=== PATIENT | male | born 1975 | race Caucasian/White ===

== ENCOUNTER 2017-08-12 10:30 | Inpatient (IN) | payer OTHER ==
[2017-08-12 11:30] VITALS: BMI 26.0
--- NOTE | 2017-08-12 14:24 | HP ---
COWS - Scale Resting Pulse: 0= [place] 80 or Below Sweatin= Chills/Flushing Restless Observation: 3= Extraneous Movement Pupil Size: 0= Normal to Room Light Bone or Joint Aches: 2= Severe Diffuse Aches Runny Nose/ Eye Tearin= Runny Nose/Eyes GI Upset > 30mins: 2= Nausea/Diarrhea Tremor Observation: 2= Slight Tremor Visible Yawning Observation: 1= 1-2x During Session Anxiety or Irritability: 2=Irritable/Anxious Goose Flesh Skin: 0=Smooth Skin COWS Score: 15 CIWA Score - CIWA Score Nausea/Vomitin-No Nausea/No Vomiting Muscle Tremors: 2 Anxiety: 5 Agitation: 4-Moderately Restless Paroxysmal Sweats: 3 Orientation: 0-Oriented Tacttile Disturbances: 0-None Auditory Disturbances: 0-None Visual Disturbances: 3-Moderate Sensitivity Headache: 0-None Present CIWA-Ar Total Score: 17 Admission ROS S - HPI Chief Complaint: "I want to get clean and I don't want to use drugs anymore." Patient is here to Detox from Alcohol, Opiates, and Xanax. Allergies/Adverse Reactions: Allergies Allergy/AdvReac Type Severity Reaction Status Date / Time Fish Containing Products Allergy Severe Hives Verified 08/12/17 11:57 NKDA Allergy Uncoded 08/12/17 11:57 History of Present Illness: Patient is a 42 YO male here to detox from Opiates, Alcohol, and Xanax (non- prescribed). This is patient's first Detox admission to [facility]. Exam Limitations: No Limitations - Ebola screening Have you traveled outside of the country in the last 21 days: No Have you had contact with anyone from an Ebola affected area: No Have you been sick,other than usual withdrawal symptoms: No Do you have a fever: No - Review of Systems Constitutional: Chills, Diaphoresis, Fever, Malaise, Night Sweats, Changes in sleep, Unintentional Wgt. Loss (Lost approx. 20 lbs. over last two months.) EENT: reports: No Symptoms Reported Respiratory: reports: No Symptoms reported Cardiac: reports: No Symptoms Reported GI: reports: Nausea, Poor Appetite, Vomiting : reports: No Symptoms Reported Musculoskeletal: reports: No Symptoms Reported Integumentary: reports: No Symptoms Reported Neuro: reports: Tremors Endocrine: reports: No Symptoms Reported Hematology: reports: No Symptoms Reported Psychiatric: reports: Judgement Intact, Mood/Affect Appropiate, Orientated x3, Anxious Other Systems: Reviewed and Negative Patient History - Patient Medical History Hx Anemia: No Hx Asthma: No Hx Chronic Obstructive Pulmonary Disease (COPD): No Hx Cancer: No Hx Cardiac Disorders: No Hx Congestive Heart Failure: No Hx Hypertension: No Hx Hypercholesterolemia: No Hx Pacemaker: No HX Cerebrovascular Accident: No Hx Seizures: No Hx Dementia: No Hx Diabetes: No Hx Gastrointestinal Disorders: No Hx Liver Disease: No Hx Genitourinary Disorders: No Hx Sexually Transmitted Disorders: No Hx Renal Disease (ESRD): No Hx Thyroid Disease: No Hx Human Immunodeficiency Virus (HIV): No (Last Tested: approx. 6 months ago: NEGATIVE.) Hx Hepatitis C: No (Cannot remember when last tested.) Hx Depression: No Hx Suicide Attempt: No (PATIENT DENIES CURRENT SI / HI.) Hx Bipolar Disorder: No Hx Schizophrenia: No Other Medical History: DENIES. - Patient Surgical History Past Surgical History: No Hx Neurologic Surgery: No Hx Cataract Extraction: No Hx Cardiac Surgery: No Hx Lung Surgery: No Hx Breast Surgery: No Hx Breast Biopsy: No Hx Abdominal Surgery: No Hx Appendectomy: No Hx Cholecystectomy: No Hx Genitourinary Surgery: No Hx Section: No Hx Orthopedic Surgery: No Other Surgical History: DENIES. Anesthesia Reaction: No - PPD History Previous Implant?: Yes Documented Results: Negative w/o proof Implanted On Prior R Admission?: No PPD to be Administered?: Yes - Reproductive History Patient is a Female of Child Bearing Age (11 -55 yrs old): No (PATIENT IS MALE.) - Smoking Cessation Smoking history: Never smoked Have you smoked in the past 12 months: No Cigars Per Day: 0 Hx Chewing Tobacco Use: No Initiated information on smoking cessation: No - Substance & Tx. History Hx Alcohol Use: Yes Hx Substance Use: Yes Substance Use Type: Alcohol, Heroin, Opiates, Tranquilizers Hx Substance Use Treatment: No - Substances Abused Heroin Route: Injection Frequency: Daily Amount used: 15 bags Age of first use: 18 Date of Last Use: 08/12/17 Alcohol-beer Route: Oral Frequency: Daily Amount used: 1-2 6 pks. Age of first use: 20 Date of Last Use: 08/12/17 Xanax Route: Oral Frequency: Daily Amount used: 5 tabs. (2 mg.) Age of first use: 41 Date of Last Use: 08/12/17 street methadone Route: Oral Frequency: 1-3 times last 30 days Amount used: 100 mg. Age of first use: 19 Date of Last Use: 08/11/17 Family Disease History - Family Disease History Family History: Denies Admission Physical Exam [facility] - Vital Signs Vital Signs: Vital Signs - 24 hr 08/12/17 11:28 Temperature 97.8 F Pulse Rate 62 Respiratory 20 Rate Blood Pressure 154/85 - Physical General Appearance: Yes: No Apparent Distress, Nourished, Appropriately Dressed , Tremorous, Irritable, Anxious HEENTM: Yes: Hearing grossly Normal, Normocephalic, Normal Voice, ALMA, Pharynx Normal Respiratory: Yes: Chest Non-Tender, Lungs Clear, No Respiratory Distress, No Accessory Muscle Use Neck: Yes: No masses,lesions,Nodules, Supple, Trachea in good position Breast: Yes: Breast Exam Deferred Cardiology: Yes: Regular Rhythm, Regular Rate, S1, S2 Abdominal: Yes: Normal Bowel Sounds, Non Tender, Flat, Soft Genitourinary: Yes: Within Normal Limits Back: Yes: Normal Inspection Musculoskeletal: Yes: full range of Motion, Gait Steady Extremities: Yes: Normal Capillary Refill, Normal Range of Motion, Non-Tender, Tremors Neurological: Yes: Fully Oriented, Alert, Normal Mood/Affect, Normal Response Integumentary: Yes: Normal Color, Dry, Warm, Track [place] (Noted on cubital crease of right forearm. No signs of infection noted at site.) Lymphatic: Yes: Within Normal Limits - Diagnostic (1) Opioid dependence with withdrawal Current Visit: Yes Status: Acute (2) Alcohol dependence with uncomplicated withdrawal Current Visit: Yes Status: Acute (3) Sedative, hypnotic or anxiolytic dependence with withdrawal, uncomplicated Current Visit: Yes Status: Acute Cleared for Admission [facility] - Detox or Rehab [facility] Level of Care: Medically Managed Detox Regimen/Protocol: Methadone/Valium [facility] Breath Alcohol Content Breath Alcohol Content: 0 Urine Drug Screen - Results Drug Screen Negative: No Urine Drug Screen Results: MATTHIAS-Cocaine, OPI-Opiates, BZO-Benzodiazepines, MTD- Methadone
[2017-08-12] MEDS ORDERED: MAGNESIUM HYDROX 2400MG/30ML ORAL SUSPENSION 30 ML CUP PO PRN (14:49)
[2017-08-12] MEDS ORDERED: guaiFENesin/D-METHORPHAN HB 10 ML UNIT-DOSE CUPS PO PRN (14:49)
[2017-08-12] MEDS ORDERED: MENTHOL/PHENOL 1 EACH UD MM PRN (14:49)
[2017-08-12] MEDS ORDERED: MAG HYDROX/AL HYDROX/SIMETH 30 ML UNIT-DOSE CUP PO PRN (14:49)
[2017-08-12] MEDS ORDERED: MAGNESIUM CITRATE 300 ML BOTTLE PO PRN (14:49)
[2017-08-12] MEDS ORDERED: ACETAMINOPHEN 325 MG TABLET (FP) PO PRN (14:49)
[2017-08-12] MEDS ORDERED: LOPERAMIDE HCL 2 MG CAPSULE PO PRN (14:49)
[2017-08-12] MEDS ORDERED: P-EPHED 60MG/TRIPROLIDI 2.5MG TABLET PO PRN (14:49)
[2017-08-12] MEDS ORDERED: METHADONE HCL 10 MG TABLET (FOR DETOX USE ONLY) PO ONE ×2 (15:15→23:00)
[2017-08-12] MEDS ORDERED: diazePAM 5 MG TABLET PO ONE (15:15)
[2017-08-12] MEDS: diazePAM 5 MG TABLET PO SCH (22:10)
[2017-08-12] MEDS: THIAMINE HCL 100 MG TABLET (FP) PO SCH (22:10)
[2017-08-13 01:29] LABS: URINE APPEARANCE CLOUDY; URINE BILIRUBIN NEGATIVE (<2.0 mg/dL); URINE COLOR AMBER; URINE GLUCOSE (UA) NEGATIVE (NEGATIVE); URINE KETONE NEGATIVE (NEGATIVE); URINE LEUK ESTERASE NEGATIVE (NEGATIVE); URINE NITRITE NEGATIVE (NEGATIVE); URINE UROBILINOGEN 4.0 E.U/dl mg/dL (0.2-1.0)
[2017-08-13 01:38] LABS: URINE PROTEIN 1+ (NEGATIVE)
[2017-08-13 01:59] LABS: CALCIUM OXALATE CRYSTALS MODERATE /hpf (NONE SEEN); URINE BACTERIA RARE /hpf (NONE SEEN); URINE MUCUS MANY
[2017-08-13] MEDS: diazePAM 5 MG TABLET PO SCH ×3 (05:23→22:05)
[2017-08-13] MEDS ORDERED: METHADONE HCL 10 MG TABLET (FOR DETOX USE ONLY) PO SCH (10:00)
[2017-08-13 10:16] LABS: HEMATOCRIT 34.6 % (35.4-49); HEMOGLOBIN 11.9 GM/dL (11.7-16.9); MCH 31.1 pg (25.7-33.7); MCHC 34.5 g/dl (32.0-35.9); MEAN PLT VOLUME 9.1 fl (7.5-11.1); PLATELET COUNT 199 K/MM3 (134-434); RBC 3.84 M/mm3 (4.00-5.60); RDW 13.9 % (11.9-15.9); WHITE BLOOD COUNT 4.8 K/mm3 (4.0-10.0)
[2017-08-13] MEDS: PRENATAL VITAMINS W/ FOLIC ACID TABLET (FP) PO SCH (10:39)
[2017-08-13] MEDS: diazePAM 5 MG TABLET PO PRN ×2 (10:40→17:09)
[2017-08-13 11:15] LABS: ALBUMIN 3.8 g/dl (3.4-5.0); ANION GAP 6 (8-16); BLOOD UREA NITROGEN 16 mg/dL (7-18); CALCIUM 8.7 mg/dL (8.5-10.1); CHLORIDE 106 mmol/L (98-107); CO2 29 mmol/L (21-32); CREATININE 0.8 mg/dL (0.7-1.3); GLUCOSE,RANDOM 80 mg/dL (74-106); SGOT/AST 17 U/L (15-37); SGPT/ALT 54 U/L (12-78); SODIUM 141 mmol/L (136-145)
[2017-08-13 11:17] LABS: ALK PHOS 58 U/L (45-117); BILIRUBIN,TOTAL 0.3 mg/dL (0.2-1.0); TOT PROT 6.9 g/dl (6.4-8.2)
--- NOTE | 2017-08-13 14:01 | EKG ---
Test Reason : Blood Pressure : / mmHG Vent. Rate : 068 BPM Atrial Rate : 068 BPM P-R Int : 128 ms QRS Dur : 098 ms QT Int : 396 ms P-R-T Axes : 075 060 039 degrees QTc Int : 421 ms NORMAL SINUS RHYTHM MINIMAL VOLTAGE CRITERIA FOR LVH, MAY BE NORMAL VARIANT BORDERLINE ECG NO PREVIOUS ECGS AVAILABLE Confirmed by DAIN WELLS MD ([id number]) on 08/13/2017 2:01:05 PM Referred By: Confirmed By:DAIN WELLS MD
--- NOTE | 2017-08-13 15:51 | PN ---
S CIWA - CIWA Score Nausea/Vomitin-No Nausea/No Vomiting Muscle Tremors: None Anxiety: 5 Agitation: 4-Moderately Restless Paroxysmal Sweats: No Perspiration Orientation: 0-Oriented Tacttile Disturbances: 2-Mild Itch/Numbness/Burn Auditory Disturbances: 2-Mild Harshness/Frighten Visual Disturbances: 3-Moderate Sensitivity Headache: 0-None Present CIWA-Ar Total Score: 16 BHS COWS - Scale Resting Pulse: 0= [place] 80 or Below Sweatin= No chills or Flushing Restless Observation: 1= Difficult to Sit Still Pupil Size: 0= Normal to Room Light Bone or Joint Aches: 2= Severe Diffuse Aches Runny Nose/ Eye Tearin= Nasal Congestion GI Upset > 30mins: 2= Nausea/Diarrhea Tremor Observation of Outstretched Hands: 0= None Yawning Observation: 1= 1-2x During Session Anxiety or Irritability: 4=Extreme Anxiety Goose Flesh Skin: 3=Piloerection COWS Score: 14 S Progress Note (SOAP) Subjective: Body aches, Anxious, Stomach Cramping, Interrupted Sleep, Diarrhea. Objective: PATIENT A & O X 3, OBSERVED AMBULATING ON UNIT. NO ACUTE DISTRESS. 08/13/17 15:50 Vital Signs Temperature 98.6 F 08/13/17 14:49 Pulse Rate 69 08/13/17 14:49 Respiratory Rate 18 08/13/17 14:49 Blood Pressure 113/74 08/13/17 14:49 O2 Sat by Pulse Oximetry (%) Laboratory Tests 08/12/17 08/13/17 08/13/17 23:52 06:00 06:00 WBC 4.8 RBC 3.84 L Hgb 11.9 Hct 34.6 L MCV 90.0 MCH 31.1 MCHC 34.5 RDW 13.9 Plt Count 199 MPV 9.1 Sodium 141 Potassium 4.0 Chloride 106 Carbon Dioxide 29 Anion Gap 6 L BUN 16 Creatinine 0.8 Creat Clearance w eGFR > 60 Random Glucose 80 Calcium 8.7 Total Bilirubin 0.3 AST 17 ALT 54 Alkaline Phosphatase 58 Total Protein 6.9 Albumin 3.8 Urine Color Beba Urine Appearance Cloudy Urine pH 6.0 Ur Specific [place] 1.031 Urine Protein 1+ H Urine Glucose (UA) Negative Urine Ketones Negative Urine Blood Negative Urine Nitrite Negative Urine Bilirubin Negative Urine Urobilinogen 4.0 e.u/dl Ur Leukocyte Esterase Negative Urine WBC (Auto) 3 Urine RBC (Auto) 3 Calcium Oxalate Crystal Moderate Urine Bacteria Rare Urine Mucus Many RPR Titer 08/13/17 06:00 WBC RBC Hgb Hct MCV MCH MCHC RDW Plt Count MPV Sodium Potassium Chloride Carbon Dioxide Anion Gap BUN Creatinine Creat Clearance w eGFR Random Glucose Calcium Total Bilirubin AST ALT Alkaline Phosphatase Total Protein Albumin Urine Color Urine Appearance Urine pH Ur Specific [place] Urine Protein Urine Glucose (UA) Urine Ketones Urine Blood Urine Nitrite Urine Bilirubin Urine Urobilinogen Ur Leukocyte Esterase Urine WBC (Auto) Urine RBC (Auto) Calcium Oxalate Crystal Urine Bacteria Urine Mucus RPR Titer Nonreactive LABS NOTED. Assessment: 08/13/17 15:50 WITHDRAWAL SYMPTOMS. Plan: CONTINUE DETOX. INCREASE DAILY PO FLUID INTAKE. PRN IMMODIUM FOR DIARRHEA.
[2017-08-13] MEDS: THIAMINE HCL 100 MG TABLET (FP) PO SCH (22:05)
[2017-08-13] MEDS: MELATONIN 5 MG TABLETS PO PRN (22:05)
[2017-08-14] MEDS: diazePAM 5 MG TABLET PO PRN ×4 (00:42→18:10)
[2017-08-14] MEDS: IBUPROFEN 400 MG TABLET (FP) PO PRN ×2 (00:42→06:48)
[2017-08-14] MEDS: METHADONE HCL 5 MG TABLET (FOR DETOX USE ONLY) PO SCH (09:04)
[2017-08-14] MEDS: PRENATAL VITAMINS W/ FOLIC ACID TABLET (FP) PO SCH (09:04)
[2017-08-14] MEDS: diazePAM 5 MG TABLET PO SCH ×2 (09:04→22:43)
[2017-08-14] MEDS: CYCLOBENZAPRINE HCL 10 MG TABLET (FP) PO PRN ×2 (09:04→22:43)
[2017-08-14] MEDS ORDERED: IBUPROFEN 600 MG TABLET (FP) PO PRN (11:04)
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
[2017-08-14] MEDS: LIDOCAINE 5% TOPICAL PATCH TP SCH (11:20)
[2017-08-14] MEDS: THIAMINE HCL 100 MG TABLET (FP) PO SCH (22:44)
[2017-08-14] MEDS: LIDOCAINE PATCH REMOVAL MC SCH (23:18)
[2017-08-15] MEDS: diazePAM 5 MG TABLET PO PRN ×3 (03:55→12:25)
[2017-08-15] MEDS: CYCLOBENZAPRINE HCL 10 MG TABLET (FP) PO PRN ×2 (07:04→22:07)
[2017-08-15] MEDS: PRENATAL VITAMINS W/ FOLIC ACID TABLET (FP) PO SCH (10:38)
[2017-08-15] MEDS: diazePAM 5 MG TABLET PO SCH ×2 (10:38→22:07)
[2017-08-15] MEDS: METHADONE HCL 5 MG TABLET (FOR DETOX USE ONLY) PO SCH (10:39)
[2017-08-15] MEDS: LIDOCAINE 5% TOPICAL PATCH TP SCH (10:39)
--- NOTE | 2017-08-15 13:03 | PN ---
BHS Progress Note (SOAP) Subjective: Body Aches, Lower Back Pain, Anxious, Constipation. Objective: PATIENT A & O X 3, OBSERVED AMBULATING ON UNIT. NO ACUTE DISTRESS. 08/15/17 13:01 Vital Signs Temperature 98.0 F 08/15/17 11:00 Pulse Rate 70 08/15/17 11:00 Respiratory Rate 18 08/15/17 11:00 Blood Pressure 106/65 08/15/17 11:00 O2 Sat by Pulse Oximetry (%) Laboratory Tests 08/12/17 08/13/17 08/13/17 23:52 06:00 06:00 WBC 4.8 RBC 3.84 L Hgb 11.9 Hct 34.6 L MCV 90.0 MCH 31.1 MCHC 34.5 RDW 13.9 Plt Count 199 MPV 9.1 Sodium 141 Potassium 4.0 Chloride 106 Carbon Dioxide 29 Anion Gap 6 L BUN 16 Creatinine 0.8 Creat Clearance w eGFR > 60 Random Glucose 80 Calcium 8.7 Total Bilirubin 0.3 AST 17 ALT 54 Alkaline Phosphatase 58 Total Protein 6.9 Albumin 3.8 Urine Color Beba Urine Appearance Cloudy Urine pH 6.0 Ur Specific [place] 1.031 Urine Protein 1+ H Urine Glucose (UA) Negative Urine Ketones Negative Urine Blood Negative Urine Nitrite Negative Urine Bilirubin Negative Urine Urobilinogen 4.0 e.u/dl Ur Leukocyte Esterase Negative Urine WBC (Auto) 3 Urine RBC (Auto) 3 Calcium Oxalate Crystal Moderate Urine Bacteria Rare Urine Mucus Many RPR Titer 08/13/17 06:00 WBC RBC Hgb Hct MCV MCH MCHC RDW Plt Count MPV Sodium Potassium Chloride Carbon Dioxide Anion Gap BUN Creatinine Creat Clearance w eGFR Random Glucose Calcium Total Bilirubin AST ALT Alkaline Phosphatase Total Protein Albumin Urine Color Urine Appearance Urine pH Ur Specific [place] Urine Protein Urine Glucose (UA) Urine Ketones Urine Blood Urine Nitrite Urine Bilirubin Urine Urobilinogen Ur Leukocyte Esterase Urine WBC (Auto) Urine RBC (Auto) Calcium Oxalate Crystal Urine Bacteria Urine Mucus RPR Titer Nonreactive LABS NOTED. Assessment: 08/15/17 13:01 withdrawal symptoms. Plan: CONTINUE DETOX. INCREASE DAILY PO FLUID INTAKE. LIDODERM PATCH FOR LOWER BACK PAIN. PRN MOM FOR CONSTIPATION.
[2017-08-15] MEDS: LIDOCAINE PATCH REMOVAL MC SCH (22:06)
[2017-08-15] MEDS: MELATONIN 5 MG TABLETS PO PRN (22:07)
[2017-08-15] MEDS: THIAMINE HCL 100 MG TABLET (FP) PO SCH (22:08)
[2017-08-16] MEDS ORDERED: diazePAM 5 MG TABLET PO SCH (10:00)
[2017-08-16] MEDS ORDERED: METHADONE HCL 10 MG TABLET (FOR DETOX USE ONLY) PO SCH (10:00)
[2017-08-16] MEDS: PRENATAL VITAMINS W/ FOLIC ACID TABLET (FP) PO SCH (10:42)
[2017-08-16] MEDS: LIDOCAINE 5% TOPICAL PATCH TP SCH (10:43)
[2017-08-16] MEDS: CLOTRIMAZOLE 1% CREAM 15 GM TUBE TP SCH ×2 (15:16→22:44)
--- NOTE | 2017-08-16 16:27 | PN ---
BHS Progress Note (SOAP) Subjective: Anxious, Body Aches. Objective: PATIENT A & O X 3, OBSERVED AMBULATING ON UNIT. NO ACUTE DISTRESS. 08/16/17 16:26 Vital Signs Temperature 95.1 F L 08/16/17 15:01 Pulse Rate 65 08/16/17 15:01 Respiratory Rate 18 08/16/17 15:01 Blood Pressure 118/74 08/16/17 15:01 O2 Sat by Pulse Oximetry (%) Laboratory Tests 08/12/17 08/13/17 08/13/17 23:52 06:00 06:00 WBC 4.8 RBC 3.84 L Hgb 11.9 Hct 34.6 L MCV 90.0 MCH 31.1 MCHC 34.5 RDW 13.9 Plt Count 199 MPV 9.1 Sodium 141 Potassium 4.0 Chloride 106 Carbon Dioxide 29 Anion Gap 6 L BUN 16 Creatinine 0.8 Creat Clearance w eGFR > 60 Random Glucose 80 Calcium 8.7 Total Bilirubin 0.3 AST 17 ALT 54 Alkaline Phosphatase 58 Total Protein 6.9 Albumin 3.8 Urine Color Beba Urine Appearance Cloudy Urine pH 6.0 Ur Specific [place] 1.031 Urine Protein 1+ H Urine Glucose (UA) Negative Urine Ketones Negative Urine Blood Negative Urine Nitrite Negative Urine Bilirubin Negative Urine Urobilinogen 4.0 e.u/dl Ur Leukocyte Esterase Negative Urine WBC (Auto) 3 Urine RBC (Auto) 3 Calcium Oxalate Crystal Moderate Urine Bacteria Rare Urine Mucus Many RPR Titer 08/13/17 06:00 WBC RBC Hgb Hct MCV MCH MCHC RDW Plt Count MPV Sodium Potassium Chloride Carbon Dioxide Anion Gap BUN Creatinine Creat Clearance w eGFR Random Glucose Calcium Total Bilirubin AST ALT Alkaline Phosphatase Total Protein Albumin Urine Color Urine Appearance Urine pH Ur Specific [place] Urine Protein Urine Glucose (UA) Urine Ketones Urine Blood Urine Nitrite Urine Bilirubin Urine Urobilinogen Ur Leukocyte Esterase Urine WBC (Auto) Urine RBC (Auto) Calcium Oxalate Crystal Urine Bacteria Urine Mucus RPR Titer Nonreactive LABS NOTED. Assessment: 08/16/17 16:26 WITHDRAWAL SYMPTOMS. Plan: CONTINUE DETOX. PATIENT SCHEDULED FOR D/C TOMORROW AM.
[2017-08-16] MEDS: LIDOCAINE PATCH REMOVAL MC SCH (22:43)
[2017-08-16] MEDS: MELATONIN 5 MG TABLETS PO PRN (22:45)
[2017-08-16] MEDS: THIAMINE HCL 100 MG TABLET (FP) PO SCH (23:20)
[2017-08-17] MEDS ORDERED: METHADONE HCL 5 MG TABLET (FOR DETOX USE ONLY) PO SCH (06:00)
[2017-08-17 06:20] VITALS: BP 118/69; PULSE 68; TEMP 96.7
[2017-08-17] MEDS: PRENATAL VITAMINS W/ FOLIC ACID TABLET (FP) PO SCH (09:24)
[2017-08-17] MEDS: CLOTRIMAZOLE 1% CREAM 15 GM TUBE TP SCH (09:24)
[2017-08-17] MEDS: LIDOCAINE 5% TOPICAL PATCH TP SCH (09:24)
--- NOTE | 2017-08-17 15:12 | PN ---
BHS Progress Note (SOAP) Subjective: DETOX COMPLETED. ALERT O X3. NAD. Objective: 08/17/17 15:16 Vital Signs - 24 hr 08/16/17 08/16/17 08/17/17 17:23 21:48 00:30 Temperature 98.1 F 95.9 F L Pulse Rate 68 59 L Respiratory 18 18 18 Rate Blood Pressure 128/74 118/72 08/17/17 08/17/17 03:30 06:19 Temperature 96.7 F L Pulse Rate 68 Respiratory 18 18 Rate Blood Pressure 118/69 Laboratory Tests 08/12/17 08/13/17 08/13/17 23:52 06:00 06:00 WBC 4.8 RBC 3.84 L Hgb 11.9 Hct 34.6 L MCV 90.0 MCH 31.1 MCHC 34.5 RDW 13.9 Plt Count 199 MPV 9.1 Sodium 141 Potassium 4.0 Chloride 106 Carbon Dioxide 29 Anion Gap 6 L BUN 16 Creatinine 0.8 Creat Clearance w eGFR > 60 Random Glucose 80 Calcium 8.7 Total Bilirubin 0.3 AST 17 ALT 54 Alkaline Phosphatase 58 Total Protein 6.9 Albumin 3.8 Urine Color Beba Urine Appearance Cloudy Urine pH 6.0 Ur Specific [place] 1.031 Urine Protein 1+ H Urine Glucose (UA) Negative Urine Ketones Negative Urine Blood Negative Urine Nitrite Negative Urine Bilirubin Negative Urine Urobilinogen 4.0 e.u/dl Ur Leukocyte Esterase Negative Urine WBC (Auto) 3 Urine RBC (Auto) 3 Calcium Oxalate Crystal Moderate Urine Bacteria Rare Urine Mucus Many RPR Titer 08/13/17 06:00 WBC RBC Hgb Hct MCV MCH MCHC RDW Plt Count MPV Sodium Potassium Chloride Carbon Dioxide Anion Gap BUN Creatinine Creat Clearance w eGFR Random Glucose Calcium Total Bilirubin AST ALT Alkaline Phosphatase Total Protein Albumin Urine Color Urine Appearance Urine pH Ur Specific [place] Urine Protein Urine Glucose (UA) Urine Ketones Urine Blood Urine Nitrite Urine Bilirubin Urine Urobilinogen Ur Leukocyte Esterase Urine WBC (Auto) Urine RBC (Auto) Calcium Oxalate Crystal Urine Bacteria Urine Mucus RPR Titer Nonreactive Assessment: 08/17/17 15:17 MEDICALLY STABLE Plan: D/C PT TODAY
--- NOTE | 2017-08-17 15:20 | DS ---
[facility] Detox Discharge Summary Admission Date: 08/12/17 Discharge Date: 08/17/17 - History Present History: Alcohol Dependence, Opioid Dependence, Sedative Dependence Additional Comments: DETOX COMPLETED. ALERT O X 3. NAD. PT REPORTS PRIMARY CARE AT [place], [place]. FOLLOW UP WITH AFTERCARE REHAB. Pertinent Past History: PLEASE SEE DX BELOW - Physical Exam Results Vital Signs: Vital Signs Temperature 96.7 F L 08/17/17 06:19 Pulse Rate 68 08/17/17 06:19 Respiratory Rate 18 08/17/17 06:19 Blood Pressure 118/69 08/17/17 06:19 O2 Sat by Pulse Oximetry (%) Pertinent Admission Physical Exam Findings: WITHDRAWAL SX Laboratory Tests 08/12/17 08/13/17 08/13/17 23:52 06:00 06:00 WBC 4.8 RBC 3.84 L Hgb 11.9 Hct 34.6 L MCV 90.0 MCH 31.1 MCHC 34.5 RDW 13.9 Plt Count 199 MPV 9.1 Sodium 141 Potassium 4.0 Chloride 106 Carbon Dioxide 29 Anion Gap 6 L BUN 16 Creatinine 0.8 Creat Clearance w eGFR > 60 Random Glucose 80 Calcium 8.7 Total Bilirubin 0.3 AST 17 ALT 54 Alkaline Phosphatase 58 Total Protein 6.9 Albumin 3.8 Urine Color Beba Urine Appearance Cloudy Urine pH 6.0 Ur Specific [place] 1.031 Urine Protein 1+ H Urine Glucose (UA) Negative Urine Ketones Negative Urine Blood Negative Urine Nitrite Negative Urine Bilirubin Negative Urine Urobilinogen 4.0 e.u/dl Ur Leukocyte Esterase Negative Urine WBC (Auto) 3 Urine RBC (Auto) 3 Calcium Oxalate Crystal Moderate Urine Bacteria Rare Urine Mucus Many RPR Titer 08/13/17 06:00 WBC RBC Hgb Hct MCV MCH MCHC RDW Plt Count MPV Sodium Potassium Chloride Carbon Dioxide Anion Gap BUN Creatinine Creat Clearance w eGFR Random Glucose Calcium Total Bilirubin AST ALT Alkaline Phosphatase Total Protein Albumin Urine Color Urine Appearance Urine pH Ur Specific [place] Urine Protein Urine Glucose (UA) Urine Ketones Urine Blood Urine Nitrite Urine Bilirubin Urine Urobilinogen Ur Leukocyte Esterase Urine WBC (Auto) Urine RBC (Auto) Calcium Oxalate Crystal Urine Bacteria Urine Mucus RPR Titer Nonreactive - Treatment Hospital Course: Detox Protocol Followed, Detoxed Safely, Responded well, Discharged Condition Good, Rehab Referral Accepted Patient has Accepted a Rehab Referral to: [facility] - Medication Discharge Medications: Ambulatory Orders NK [No Known Home Medication] 08/12/17 - AMA Did Patient Leave Against Medical Advice: No
== END 2017-08-17 09:40 | disposition home or self-care (01) | DRG 773 ==
LOC: YASAS 10:30 → Y3N 13:30
PROVIDERS: ADMIT Internal Medicine; ATTEND Internal Medicine
PROC: HZ2ZZZZ Detoxification Services for Substance Abuse Treatment (ICD-10-PCS; principal; 2017-08-12)
DX: F11.23 Opioid dependence with withdrawal (principal); F13.230 Sedative, hypnotic or anxiolytic dependence with withdrawal, uncomplicated; F10.230 Alcohol dependence with withdrawal, uncomplicated
CPT/HCPCS: 36415; 80053; 81003; 81015; 85027; 86593; 93005; 93010

== ENCOUNTER 2019-11-02 15:18 | Inpatient (IN) | payer BC ==
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
--- NOTE | 2019-11-02 16:55 | HP ---
"COWS - Scale Resting Pulse: 0= [place] 80 or Below Sweatin= Chills/Flushing Restless Observation: 0= Sits Still Pupil Size: 0= Normal to Room Light Bone or Joint Aches: 2= Severe Diffuse Aches Runny Nose/ Eye Tearin= Runny Nose/Eyes GI Upset > 30mins: 2= Nausea/Diarrhea Tremor Observation: 1= Tremor [place], Not Seen Yawning Observation: 0= None Anxiety or Irritability: 1=Feels Anxious/Irritable Goose Flesh Skin: 0=Smooth Skin COWS Score: 9 CIWA Score Nausea/Vomitin Muscle Tremors: None Anxiety: 3 Agitation: 0-Normal Activity Paroxysmal Sweats: 3 Orientation: 0-Oriented Tacttile Disturbances: 0-None Auditory Disturbances: 0-None Visual Disturbances: 0-None Headache: 0-None Present CIWA-Ar Total Score: 9 - Admission Criteria [facility]ASAS Guidelines: Admission for Medically Managed Detox: Requires at least one of the followin. CIWA greater than 12 2. Seizures within the past 24 hours 3. Delirium tremens within the past 24 hours 4. Hallucinations within the past 24 hours 5. Acute intervention needed for co occurring medical disorder 6. Acute intervention needed for co occurring psychiatric disorder 7. Severe withdrawal that cannot be handled at a lower level of care (continued vomiting, continued diarrhea, abnormal vital signs) requiring intravenous medication and/or fluids 8. Admitting History and Physical - Smoking History Smoking history: Never smoked Have you smoked in the past 12 months: No - Alcohol/Substance Use Hx Alcohol Use: Yes Admission [facility] Allergies/Adverse Reactions: Allergies Allergy/AdvReac Type Severity Reaction Status Date / Time Fish Containing Products Allergy Severe Hives Verified 11/02/19 17:31 No Known Drug Allergies Allergy Verified 11/02/19 17:31 NKDA Allergy Uncoded 11/02/19 17:31 History of Present Illness: 44 y.o. male requesting detox from heroin , benzodiazepine and k2 . pt reports heroin use 1 bundle/day IV in UE , denies abscess , denies OD , use x 25 yrs , latest use today 7 bags , Methadone illicit 10 mg yesterday , denies ever being in [facility] . cocaine : denies cannabis - denies K2 - 25 joints/ day x 5 yrs benzo: xanax 7 sticks /day x 8 years , denies seizures tobacco - denies alcohol : 1 pint /day x 3 years daily , denies seizures , denies blackouts , + tremors in the mornings . PMHX : denies PSHX : denies PSYCH : anxiety , bipolar d/o , depression Search Terms: carmine maurer, 1975 Search Date: 11/02/2019 16:49:51 PM The Drug Utilization Report below displays all of the controlled substance prescriptions, if any, that your patient has filled in the last twelve months. The information displayed on this report is compiled from pharmacy submissions to the Department, and accurately reflects the information as submitted by the pharmacies. This report was requested by: Asia Monsalve | Reference #: [id number] There are no results for the search terms that you entered. Exam Limitations: Clinical Condition, Intoxication - Review of Systems Constitutional: Loss of Appetite, Unintentional Wgt. Loss (40 lbs in 5 months due to use) EENT: reports: Nose Congestion, Other (glasses) Respiratory: reports: No Symptoms reported Cardiac: reports: No Symptoms Reported GI: reports: Nausea, Poor Appetite, Abdominal cramping : reports: No Symptoms Reported Musculoskeletal: reports: Muscle Pain Integumentary: reports: No Symptoms Reported, Other (IVDU) Neuro: reports: See HPI, Tremors Endocrine: reports: No Symptoms Reported Psychiatric: reports: Orientated x3, Anxious, Depressed Patient History - Patient Medical History Hx Anemia: No Hx Asthma: No Hx Chronic Obstructive Pulmonary Disease (COPD): No Hx Cancer: No Hx Cardiac Disorders: No Hx Congestive Heart Failure: No Hx Hypertension: No Hx Hypercholesterolemia: No Hx Pacemaker: No HX Cerebrovascular Accident: No Hx Seizures: No Hx Dementia: No Hx Diabetes: No Hx Gastrointestinal Disorders: No Hx Liver Disease: No Hx Genitourinary Disorders: No Hx Sexually Transmitted Disorders: No Hx Renal Disease (ESRD): No Hx Thyroid Disease: No Hx Human Immunodeficiency Virus (HIV): No (Last Tested: approx. 6 months ago: NEGATIVE.) Hx Hepatitis C: No (Cannot remember when last tested.) Hx Depression: No Hx Suicide Attempt: No (PATIENT DENIES CURRENT SI / HI.) Hx Bipolar Disorder: No Hx Schizophrenia: No - Patient Surgical History Past Surgical History: No Hx Neurologic Surgery: No Hx Cataract Extraction: No Hx Cardiac Surgery: No Hx Lung Surgery: No Hx Breast Surgery: No Hx Breast Biopsy: No Hx Abdominal Surgery: No Hx Appendectomy: No Hx Cholecystectomy: No Hx Genitourinary Surgery: No Hx Section: No Hx Orthopedic Surgery: No Other Surgical History: DENIES. Anesthesia Reaction: No - PPD History Date: 08/14/17 - Smoking Cessation Smoking history: Never smoked Have you smoked in the past 12 months: No Cigars Per Day: 0 Hx Chewing Tobacco Use: No - Substances abused Alcohol Substance route: Oral Frequency: Daily Amount used: 1 pint of vodka Age of first use: 16 Date of last use: 11/02/19 Heroin Substance route: Injection Frequency: Daily Amount used: 1 bundle Age of first use: 18 Date of last use: 11/02/19 Alprazolam (Xanax) Substance route: Oral Frequency: Daily Amount used: 2 mg Age of first use: 17 Date of last use: 11/01/19 Marijuana/Hashish Substance route: Oral Frequency: 1-2 times per week Amount used: 1 blunt Age of first use: 15 Date of last use: 11/02/19 K2/Spice Substance route: Smoking Frequency: Daily Amount used: 20 to 25 joints Age of first use: 38 Date of last use: 11/01/19 Admission Physical Exam [facility] - Physical General Appearance: Yes: Mild Distress, Intoxicated, Tremorous HEENTM: Yes: EOMI, Hearing grossly Normal, Normocephalic, Nasal Congestion, Rhinorrhea, Muffled/Hoarse Voice Respiratory: Yes: Chest Non-Tender, Lungs Clear, Normal Breath Sounds, No Respiratory Distress, No Accessory Muscle Use Neck: Yes: No masses,lesions,Nodules, Trachea in good position Cardiology: Yes: Regular Rhythm, Regular Rate, S1, S2 Abdominal: Yes: Non Tender, Soft Back: Yes: Normal Inspection Musculoskeletal: Yes: Gait Steady, Back pain Extremities: Yes: Normal Inspection, Normal Range of Motion, Non-Tender Neurological: Yes: Fully Oriented, Alert, Motor Strength 5/5, Depressed Affect Integumentary: Yes: Warm, Track [place] (R antecubital) - Diagnostic (1) Alcohol dependence with uncomplicated withdrawal Current Visit: Yes Status: Chronic (2) Opioid dependence with withdrawal Current Visit: Yes Status: Chronic Breathalyzer - Breathalyzer Breathalyzer: 0 Urine Drug Screen - Test Device Lot number: [id number] Expiration date: 11/09/19 - Control Is test valid?: Yes - Results Drug screen NEGATIVE: No Urine drug screen results: THC-Marijuana, MATTHIAS-Cocaine, FEN-Fentanyl, MOP- Opiates, MTD-Methadone Inpatient Rehab Admission - Rehab Decision to Admit Inpatient rehab admission?: No"
[2019-11-02] MEDS ORDERED: MENTHOL/PHENOL 1 EACH UD MM PRN (17:02)
[2019-11-02] MEDS ORDERED: MAGNESIUM HYDROX 2400MG/30ML ORAL SUSPENSION 30 ML CUP PO PRN (17:02)
[2019-11-02] MEDS ORDERED: MAG HYDROX/AL HYDROX/SIMETH 30 ML UNIT-DOSE CUP PO PRN (17:02)
[2019-11-02] MEDS ORDERED: hydrOXYzine PAMOATE 25 MG CAPSULE (FP) PO PRN (17:02)
[2019-11-02] MEDS ORDERED: BISMUTH SUBSALICYLATE 524 MG/30 ML UD PO PRN (17:02)
[2019-11-02] MEDS ORDERED: MAGNESIUM CITRATE 300 ML BOTTLE PO PRN (17:02)
[2019-11-02] MEDS ORDERED: ACETAMINOPHEN 325 MG TABLET (FP) PO PRN (17:02)
[2019-11-02] MEDS ORDERED: IBUPROFEN 400 MG TABLET (FP) PO PRN (17:02)
[2019-11-02] MEDS ORDERED: chlordiazePOXIDE HCL 25 MG CAPSULE PO PRN (17:10)
[2019-11-02 17:43] VITALS: BMI 22.1
[2019-11-02] MEDS ORDERED: cloNIDine HCL 0.1 MG TABLET PO PRN (18:29)
[2019-11-02] MEDS ORDERED: METHADONE HCL 10 MG TABLET (FOR DETOX USE ONLY) PO ONE (18:45)
[2019-11-02] MEDS: chlordiazePOXIDE HCL 25 MG CAPSULE PO SCH ×2 (18:52→22:20)
[2019-11-02] MEDS ORDERED: MELATONIN 5 MG TABLETS PO PRN (22:00)
[2019-11-02] MEDS: THIAMINE HCL 100 MG TABLET (FP) PO SCH (22:20)
[2019-11-03] MEDS: chlordiazePOXIDE HCL 25 MG CAPSULE PO SCH (05:36)
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
--- NOTE | 2019-11-03 09:16 | EKG ---
Test Reason : Blood Pressure : / mmHG Vent. Rate : 061 BPM Atrial Rate : 061 BPM P-R Int : 116 ms QRS Dur : 100 ms QT Int : 444 ms P-R-T Axes : 061 071 052 degrees QTc Int : 446 ms NORMAL SINUS RHYTHM NORMAL ECG WHEN COMPARED WITH ECG OF 12-AUG-2017 18:51, NO SIGNIFICANT CHANGE WAS FOUND Confirmed by MD RIVERA PENG ([id number]) on 11/03/2019 9:16:25 AM Referred By: Confirmed By:SELENE RIVERA MD
[2019-11-03] MEDS ORDERED: diazePAM 5 MG TABLET PO ONE (09:28)
[2019-11-03] MEDS ORDERED: METHADONE HCL 5 MG TABLET (FOR DETOX USE ONLY) ONE (09:33)
[2019-11-03] MEDS ORDERED: METHADONE HCL 10 MG TABLET (FOR DETOX USE ONLY) ONE (09:33)
[2019-11-03] MEDS ORDERED: METHADONE (DETOX) 20 MG, METHADONE (DETOX) 5 MG PO ONE (10:00)
[2019-11-03] MEDS: PRENATAL VITAMINS W/ FOLIC ACID TABLET (FP) PO SCH (10:17)
[2019-11-03] MEDS: LURASIDONE HCL 20 MG TABLET PO SCH (10:19)
--- NOTE | 2019-11-03 10:29 | PN ---
[facility] CIWA - CIWA Score Nausea/Vomitin-No Nausea/No Vomiting Muscle Tremors: 3 Anxiety: 3 Agitation: 4-Moderately Restless Paroxysmal Sweats: 3 Orientation: 0-Oriented Tacttile Disturbances: 0-None Auditory Disturbances: 0-None Visual Disturbances: 0-None Headache: 0-None Present CIWA-Ar Total Score: 13 BHS COWS - Scale Resting Pulse: 0= [place] 80 or Below Sweatin= Chills/Flushing Restless Observation: 1= Difficult to Sit Still Pupil Size: 0= Normal to Room Light Bone or Joint Aches: 2= Severe Diffuse Aches Runny Nose/ Eye Tearin= Nasal Congestion GI Upset > 30mins: 0= None Tremor Observation of Outstretched Hands: 1= Tremor [place], Not Seen Yawning Observation: 1= 1-2x During Session Anxiety or Irritability: 2=Irritable/Anxious Goose Flesh Skin: 3=Piloerection COWS Score: 12 S Progress Note (SOAP) Subjective: goose bumps sweats chills restless body aches interrupted sleep agitation headache poor appetite the librium is not helping its making me feel jumpy. I prefer valium. Objective: 11/03/19 10:26 Vital Signs Temperature 97.7 F 11/03/19 08:49 Pulse Rate 71 11/03/19 08:49 Respiratory Rate 18 11/03/19 08:49 Blood Pressure 122/70 11/03/19 08:49 O2 Sat by Pulse Oximetry (%) 97 11/03/19 08:49 labs pending aaox3 ambulating no acute distress Assessment: 11/03/19 10:27 withdrawals Plan: d/c librium as per pt reques will start with valium detox along his methadone taper tylenol/motrin/roboxin prn ensure plus bid for lunch and dinner visitril 50mg ordered by psych increase fluids
[2019-11-03 11:23] LABS: HEMATOCRIT 39.3 % (35.4-49); HEMOGLOBIN 13.1 GM/dL (11.7-16.9); MCH 30.3 pg (25.7-33.7); MCHC 33.4 g/dl (32.0-35.9); MEAN CELL VOLUME 90.7 fl (80-96); MEAN PLT VOLUME 8.8 fl (7.5-11.1); PLATELET COUNT 182 K/MM3 (134-434); RBC 4.33 M/mm3 (4.00-5.60); WHITE BLOOD COUNT 4.3 K/mm3 (4.0-10.0)
[2019-11-03 11:24] LABS: ALBUMIN 3.4 g/dl (3.4-5.0); BILIRUBIN,TOTAL 0.8 mg/dL (0.2-1); BLOOD UREA NITROGEN 15.1 mg/dL (7-18); CALCIUM 8.5 mg/dL (8.5-10.1); POTASSIUM 4.1 mmol/L (3.5-5.1); TOT PROT 6.7 g/dl (6.4-8.2)
[2019-11-03] MEDS: ACETAMINOPHEN 325 MG TABLET (FP) PO PRN (12:22)
[2019-11-03] MEDS: diazePAM 5 MG TABLET PO SCH ×2 (14:22→21:30)
--- NOTE | 2019-11-03 14:54 | PN ---
[facility] Progress Note Note: While in the dayroom patient Brayan states that Mr. Street was seen "sniffing" something. security was called and room search was done. Pt also agreed to have a urine toxicology done and results show nothing out of the ordinary. Pt urine tox only show the prescribed medication he is getting while in detox. pt was compliant to all instructions asked. No further search/investigation needed at this time.
[2019-11-03] MEDS: MELATONIN 5 MG TABLETS PO PRN (21:31)
[2019-11-03] MEDS: THIAMINE HCL 100 MG TABLET (FP) PO SCH (21:31)
[2019-11-04] MEDS ORDERED: chlordiazePOXIDE HCL 25 MG CAPSULE PO SCH (05:00)
[2019-11-04] MEDS: diazePAM 5 MG TABLET PO SCH ×3 (05:30→22:31)
[2019-11-04] MEDS ORDERED: TRIMETHOBENZAMIDE HCL 200MG/2ML INJ IM ONE (05:52)
[2019-11-04] MEDS: hydrOXYzine PAMOATE 50 MG CAPSULE (FP) PO PRN ×2 (06:09→17:53)
[2019-11-04] MEDS ORDERED: METHADONE HCL 10 MG TABLET (FOR DETOX USE ONLY) PO ONE (10:00)
[2019-11-04] MEDS ORDERED: TRIMETHOBENZAMIDE HCL 300 MG CAPSULE PO PRN (10:19)
[2019-11-04] MEDS: LURASIDONE HCL 20 MG TABLET PO SCH (11:00)
[2019-11-04] MEDS: diazePAM 5 MG TABLET PO PRN ×2 (11:01→17:52)
[2019-11-04] MEDS: LIDOCAINE 5% TOPICAL PATCH TP SCH (11:03)
[2019-11-04] MEDS: PRENATAL VITAMINS W/ FOLIC ACID TABLET (FP) PO SCH (11:04)
--- NOTE | 2019-11-04 11:15 | PN ---
[facility] CIWA - CIWA Score Nausea/Vomitin-No Nausea/No Vomiting Muscle Tremors: 3 Anxiety: 3 Agitation: 2 Paroxysmal Sweats: 2 Orientation: 0-Oriented Tacttile Disturbances: 0-None Auditory Disturbances: 0-None Visual Disturbances: 0-None Headache: 0-None Present CIWA-Ar Total Score: 10 BHS COWS - Scale Resting Pulse: 0= [place] 80 or Below Sweatin= Chills/Flushing Restless Observation: 1= Difficult to Sit Still Pupil Size: 0= Normal to Room Light Bone or Joint Aches: 1= Mild Discomfort Runny Nose/ Eye Tearin= None GI Upset > 30mins: 0= None Tremor Observation of Outstretched Hands: 1= Tremor [place], Not Seen Yawning Observation: 1= 1-2x During Session Anxiety or Irritability: 1=Feels Anxious/Irritable Goose Flesh Skin: 0=Smooth Skin COWS Score: 6 BHS Progress Note (SOAP) Subjective: low back pain sweats restless Objective: 11/04/19 11:14 Vital Signs Temperature 97.7 F 11/04/19 08:40 Pulse Rate 70 11/04/19 08:40 Respiratory Rate 19 11/04/19 08:40 Blood Pressure 131/78 11/04/19 08:40 O2 Sat by Pulse Oximetry (%) 98 11/04/19 08:40 Laboratory Tests 11/02/19 11/03/19 11/03/19 17:50 08:00 08:00 WBC 4.3 RBC 4.33 Hgb 13.1 Hct 39.3 MCV 90.7 MCH 30.3 MCHC 33.4 RDW 14.0 Plt Count 182 MPV 8.8 Sodium Potassium Chloride Carbon Dioxide Anion Gap BUN Creatinine Est GFR (CKD-EPI)AfAm Est GFR (CKD-EPI)NonAf Random Glucose Calcium Total Bilirubin AST ALT Alkaline Phosphatase Total Protein Albumin Syphilis Serology Non-reactive COVID-19 ([facility]) Not detected 11/03/19 08:00 WBC RBC Hgb Hct MCV MCH MCHC RDW Plt Count MPV Sodium 140 Potassium 4.1 Chloride 107 Carbon Dioxide 26 Anion Gap 7 L BUN 15.1 Creatinine 1.0 Est GFR (CKD-EPI)AfAm 104.15 Est GFR (CKD-EPI)NonAf 89.86 Random Glucose 92 Calcium 8.5 Total Bilirubin 0.8 AST 22 ALT 42 Alkaline Phosphatase 59 Total Protein 6.7 Albumin 3.4 Syphilis Serology COVID-19 ([facility]) labs noted aaox3 ambulating with cane no acute distress Assessment: 11/04/19 11:14 withdrawals Plan: continue detox lidocaine patch motrin/tylenol prn
[2019-11-04] MEDS: ACETAMINOPHEN 325 MG TABLET (FP) PO PRN (17:54)
[2019-11-04] MEDS: THIAMINE HCL 100 MG TABLET (FP) PO SCH (22:31)
[2019-11-04] MEDS: LIDOCAINE PATCH REMOVAL MC SCH (22:32)
[2019-11-04] MEDS: MELATONIN 5 MG TABLETS PO PRN (22:33)
[2019-11-04] MEDS: HYDROCORTISONE 1% TOPICAL CREAM 30 GM TUBE TP PRN (22:35)
[2019-11-05] MEDS ORDERED: chlordiazePOXIDE HCL 10 MG CAPSULE PO PRN
[2019-11-05] MEDS ORDERED: chlordiazePOXIDE HCL 10 MG CAPSULE PO SCH (05:00)
[2019-11-05] MEDS: diazePAM 5 MG TABLET PO SCH ×2 (05:15→17:37)
[2019-11-05] MEDS: hydrOXYzine PAMOATE 50 MG CAPSULE (FP) PO PRN (06:38)
[2019-11-05] MEDS ORDERED: METHADONE HCL 5 MG TABLET (FOR DETOX USE ONLY) ONE (09:34)
[2019-11-05] MEDS ORDERED: METHADONE HCL 10 MG TABLET (FOR DETOX USE ONLY) ONE (09:35)
[2019-11-05] MEDS ORDERED: METHADONE (DETOX) 10 MG, METHADONE (DETOX) 5 MG PO ONE (10:00)
[2019-11-05] MEDS: LURASIDONE HCL 20 MG TABLET PO SCH (10:35)
[2019-11-05] MEDS: PRENATAL VITAMINS W/ FOLIC ACID TABLET (FP) PO SCH (10:36)
[2019-11-05] MEDS: NICOTINE POLACRILEX 2 MG GUM BUC PRN ×2 (10:37→12:38)
[2019-11-05] MEDS: LIDOCAINE 5% TOPICAL PATCH TP SCH (10:38)
[2019-11-05] MEDS: ALBUTEROL SO4 HFA INHALER IH PRN (12:17)
[2019-11-05] MEDS: diazePAM 5 MG TABLET PO PRN ×2 (12:20→22:15)
--- NOTE | 2019-11-05 12:31 | PN ---
[facility] CIWA - CIWA Score Nausea/Vomitin-Mild Nausea/No Vomiting Muscle Tremors: 2 Anxiety: 2 Agitation: 2 Paroxysmal Sweats: No Perspiration Orientation: 0-Oriented Tacttile Disturbances: 1-Very Mild Itch/Numbness Auditory Disturbances: 0-None Visual Disturbances: 0-None Headache: 1-Very Mild CIWA-Ar Total Score: 9 BHS COWS - Scale Resting Pulse: 0= [place] 80 or Below Sweatin= No chills or Flushing Restless Observation: 0= Sits Still Pupil Size: 0= Normal to Room Light Bone or Joint Aches: 1= Mild Discomfort Runny Nose/ Eye Tearin= Nasal Congestion GI Upset > 30mins: 1= Stomach Cramp Tremor Observation of Outstretched Hands: 1= Tremor [place], Not Seen Yawning Observation: 1= 1-2x During Session Anxiety or Irritability: 2=Irritable/Anxious Goose Flesh Skin: 0=Smooth Skin COWS Score: 7 [facility] Progress Note (SOAP) Subjective: alert,irritable,anxious,interrupted sleep,tremor,pain in the body and back,aching pain,history of asthma Objective: 11/05/19 11:59 Vital Signs Temperature 98.2 F 11/05/19 08:57 Pulse Rate 71 11/05/19 08:57 Respiratory Rate 17 11/05/19 08:57 Blood Pressure 128/73 11/05/19 08:57 O2 Sat by Pulse Oximetry (%) 99 11/05/19 08:57 Assessment: 11/05/19 12:31 withdrawal symptom,lung clear to auscultation 11/05/19 12:33 Plan: continue detox methadone and valium regimen,albuterol inhaler 2 puff q 4 hrs prn for wheezing
[2019-11-05] MEDS: NICOTINE POLACRILEX 4 MG GUM BUC PRN ×3 (15:49→19:39)
[2019-11-05] MEDS: HYDROCORTISONE 1% TOPICAL CREAM 30 GM TUBE TP PRN (18:39)
[2019-11-05] MEDS: METHOCARBAMOL 500 MG TABLET PO PRN (22:15)
[2019-11-05] MEDS: MELATONIN 5 MG TABLETS PO PRN (22:16)
[2019-11-05] MEDS: THIAMINE HCL 100 MG TABLET (FP) PO SCH (22:16)
[2019-11-05] MEDS: LIDOCAINE PATCH REMOVAL MC SCH (22:18)
[2019-11-06] MEDS: diazePAM 5 MG TABLET PO PRN (02:16)
[2019-11-06] MEDS ORDERED: chlordiazePOXIDE HCL 10 MG CAPSULE PO SCH (05:00)
[2019-11-06] MEDS ORDERED: diazePAM 5 MG TABLET PO ONE (06:00)
[2019-11-06] MEDS: NICOTINE POLACRILEX 4 MG GUM BUC PRN ×7 (06:49→21:56)
[2019-11-06] MEDS ORDERED: METHADONE HCL 10 MG TABLET (FOR DETOX USE ONLY) PO ONE (10:00)
[2019-11-06] MEDS: LURASIDONE HCL 20 MG TABLET PO SCH (10:02)
[2019-11-06] MEDS: LIDOCAINE 5% TOPICAL PATCH TP SCH (10:02)
[2019-11-06] MEDS: PRENATAL VITAMINS W/ FOLIC ACID TABLET (FP) PO SCH (10:05)
[2019-11-06] MEDS: hydrOXYzine PAMOATE 50 MG CAPSULE (FP) PO PRN ×3 (12:14→21:54)
--- NOTE | 2019-11-06 16:43 | PN ---
[facility] CIWA - CIWA Score Nausea/Vomitin-No Nausea/No Vomiting Muscle Tremors: None Anxiety: 3 Agitation: 4-Moderately Restless Paroxysmal Sweats: 2 Orientation: 0-Oriented Tacttile Disturbances: 0-None Auditory Disturbances: 0-None Visual Disturbances: 0-None Headache: 0-None Present CIWA-Ar Total Score: 9 S COWS - Scale Resting Pulse: 1= [place] 81-100 Sweatin= Chills/Flushing Restless Observation: 1= Difficult to Sit Still Pupil Size: 0= Normal to Room Light Bone or Joint Aches: 1= Mild Discomfort Runny Nose/ Eye Tearin= None GI Upset > 30mins: 0= None Tremor Observation of Outstretched Hands: 0= None Yawning Observation: 1= 1-2x During Session Anxiety or Irritability: 2=Irritable/Anxious Goose Flesh Skin: 0=Smooth Skin COWS Score: 7 S Progress Note (SOAP) Subjective: Anxious, Restless, Sweating (mild). Objective: Patient A & O X 3, Observed Ambulating on Detox Unit Unassisted. In No Acute Distress. 11/06/19 16:40 Vital Signs Temperature 98.4 F 11/06/19 12:30 Pulse Rate 95 H 11/06/19 12:30 Respiratory Rate 18 11/06/19 12:30 Blood Pressure 117/74 11/06/19 12:30 O2 Sat by Pulse Oximetry (%) 98 11/06/19 12:30 Laboratory Tests 11/02/19 11/03/19 11/03/19 17:50 08:00 08:00 WBC 4.3 RBC 4.33 Hgb 13.1 Hct 39.3 MCV 90.7 MCH 30.3 MCHC 33.4 RDW 14.0 Plt Count 182 MPV 8.8 Sodium Potassium Chloride Carbon Dioxide Anion Gap BUN Creatinine Est GFR (CKD-EPI)AfAm Est GFR (CKD-EPI)NonAf Random Glucose Calcium Total Bilirubin AST ALT Alkaline Phosphatase Total Protein Albumin Syphilis Serology Non-reactive COVID-19 ([facility]) Not detected 11/03/19 08:00 WBC RBC Hgb Hct MCV MCH MCHC RDW Plt Count MPV Sodium 140 Potassium 4.1 Chloride 107 Carbon Dioxide 26 Anion Gap 7 L BUN 15.1 Creatinine 1.0 Est GFR (CKD-EPI)AfAm 104.15 Est GFR (CKD-EPI)NonAf 89.86 Random Glucose 92 Calcium 8.5 Total Bilirubin 0.8 AST 22 ALT 42 Alkaline Phosphatase 59 Total Protein 6.7 Albumin 3.4 Syphilis Serology COVID-19 ([facility]) Lab Results noted. Assessment: 11/06/19 16:41 WITHDRAWAL SYMPTOMS. Plan: Continue Detox. Patient scheduled for D/C from detox unit tomorrow.
[2019-11-06] MEDS: THIAMINE HCL 100 MG TABLET (FP) PO SCH (21:54)
[2019-11-06] MEDS: LIDOCAINE PATCH REMOVAL MC SCH (21:54)
[2019-11-06] MEDS: METHOCARBAMOL 500 MG TABLET PO PRN (21:54)
[2019-11-06] MEDS: MELATONIN 5 MG TABLETS PO PRN (21:55)
[2019-11-07] MEDS: NICOTINE POLACRILEX 4 MG GUM BUC PRN ×4 (01:53→09:22)
[2019-11-07] MEDS: hydrOXYzine PAMOATE 50 MG CAPSULE (FP) PO PRN (01:54)
[2019-11-07] MEDS ORDERED: chlordiazePOXIDE HCL 10 MG CAPSULE PO ONE (05:00)
[2019-11-07] MEDS: ALBUTEROL SO4 HFA INHALER IH PRN (05:19)
[2019-11-07 05:57] VITALS: BP 132/78; PULSE 77; TEMP 96.9
[2019-11-07] MEDS ORDERED: METHADONE HCL 5 MG TABLET (FOR DETOX USE ONLY) PO ONE (06:00)
--- NOTE | 2019-11-07 16:17 | DS ---
[facility] Detox Discharge Summary Admission Date: 11/02/19 Discharge Date: 11/07/19 - History Present History: Alcohol Dependence, Opioid Dependence, Sedative Dependence, K 2 Additional Comments: Patient completed detox successfully and discharged safely in stable condition. Patient instructed to follow up with PCP within 1-2 weeks. - Physical Exam Results Vital Signs: Vital Signs Temperature 96.9 F L 11/07/19 05:13 Pulse Rate 77 11/07/19 05:13 Respiratory Rate 20 11/07/19 05:13 Blood Pressure 132/78 11/07/19 05:13 O2 Sat by Pulse Oximetry (%) 98 11/07/19 05:13 Pertinent Admission Physical Exam Findings: Withdrawal sxs Laboratory Tests 11/02/19 11/03/19 11/03/19 17:50 08:00 08:00 WBC 4.3 RBC 4.33 Hgb 13.1 Hct 39.3 MCV 90.7 MCH 30.3 MCHC 33.4 RDW 14.0 Plt Count 182 MPV 8.8 Sodium Potassium Chloride Carbon Dioxide Anion Gap BUN Creatinine Est GFR (CKD-EPI)AfAm Est GFR (CKD-EPI)NonAf Random Glucose Calcium Total Bilirubin AST ALT Alkaline Phosphatase Total Protein Albumin Syphilis Serology Non-reactive COVID-19 ([facility]) Not detected 11/03/19 08:00 WBC RBC Hgb Hct MCV MCH MCHC RDW Plt Count MPV Sodium 140 Potassium 4.1 Chloride 107 Carbon Dioxide 26 Anion Gap 7 L BUN 15.1 Creatinine 1.0 Est GFR (CKD-EPI)AfAm 104.15 Est GFR (CKD-EPI)NonAf 89.86 Random Glucose 92 Calcium 8.5 Total Bilirubin 0.8 AST 22 ALT 42 Alkaline Phosphatase 59 Total Protein 6.7 Albumin 3.4 Syphilis Serology COVID-19 ([facility]) Labs reviewed - Treatment Hospital Course: Detox Protocol Followed, Detoxed Safely, Responded well, Discharged Condition Good - Medication Discharge Medications: Ambulatory Orders Clonazepam [Klonopin] 2 mg PO BID 11/02/19 Lurasidone HCl [Latuda -] 20 mg PO DAILY 11/02/19 Tramadol HCl 50 mg PO BID 11/02/19 Albuterol Sulfate Inhaler - [Ventolin HFA Inhaler -] 1 - 2 puff IH Q4H PRN #1 inhaler 11/06/19 - Diagnosis (1) Synthetic cannabinoid dependence Status: Chronic (2) Alcohol dependence with uncomplicated withdrawal Status: Acute (3) Opioid dependence with withdrawal Status: Acute (4) Sedative, hypnotic or anxiolytic dependence with withdrawal, uncomplicated Status: Acute (5) Bipolar disorder Status: Chronic - AMA Did Patient Leave Against Medical Advice: No (Instructed to follow up with PCP within 1-2 weeks)
== END 2019-11-07 09:25 | disposition home or self-care (01) | DRG 773 ==
LOC: YASAS 15:18 → Y6N 17:38
PROVIDERS: ADMIT Allergy & Immunology; ATTEND Allergy & Immunology
PROC: HZ2ZZZZ Detoxification Services for Substance Abuse Treatment (ICD-10-PCS; principal; 2019-11-02)
DX: F11.23 Opioid dependence with withdrawal (principal); F10.230 Alcohol dependence with withdrawal, uncomplicated; F10.220 Alcohol dependence with intoxication, uncomplicated; F13.230 Sedative, hypnotic or anxiolytic dependence with withdrawal, uncomplicated; F12.20 Cannabis dependence, uncomplicated; F31.9 Bipolar disorder, unspecified; F39 Unspecified mood [affective] disorder; F19.280 Other psychoactive substance dependence with psychoactive substance-induced anxiety disorder; F19.282 Other psychoactive substance dependence with psychoactive substance-induced sleep disorder; Z91.013 Allergy to seafood
CPT/HCPCS: 36415; 80053; 85027; 86780; 93005; 93010; J0735; U0003